=== PATIENT | female | born 1970 | race Caucasian/White ===

== ENCOUNTER 2020-05-27 11:23 | Inpatient (IN) | payer OTHER ==
[~2020-05-27] VITALS: Ht 175.3 cm; Wt 80.2 kg
[2020-05-27] MEDS ORDERED: IV NORMAL SALINE 1,000ML 1,000 ML IV SCH (12:00)
--- NOTE | 2020-05-27 12:00 | PHYS DOC ---
Past History Past Medical History: Anxiety Adult General Chief Complaint Chief Complaint: SHORTNESS OF BREATH HPI HPI Patient is a 50-year-old female presenting for COVID-19 symptoms. She was diagnosed 13 days ago at outpatient clinic. She has been symptomatic for francine roximately 15 days now. Patient's was infected first, then her [id number] was infected and symptomatic to the point of hospitalization for which she was discharged today. Nonetheless, patient today has been experiencing worsening dizziness, fatigue and generalized aches and pains for past 72 hours. She has had increased shortness of breath without any sputum production or reportable fever. She is otherwise healthy, has known medical diagnoses of anxiety, depression and psychogenic syncope, no prior cardiac or respiratory issues and is otherwise not on any other medications besides a daily SSRI. Review of Systems Review of Systems Fourteen body systems of review of systems have been reviewed. See HPI for pertinent positives and negative responses, other harry all other systems are negative, non-pertinent or non-contributory Physical Exam Physical Exam Constitutional: Pt is oriented to person, place, and time. Pt appears well-developed and well- nourished. HEENT: Head: Normocephalic and atraumatic. TMs clear, no hemotympanum Conjunctivae and EOM are normal. Pupils are equal, round, and reactive to light. Oropharynx is clear and moist. No hematomas or lacerations or abrasions to face or scalp OP clear, no blood, no malocclusion, dentition intact Nares clear, no nasal septal hematoma Midface stable Neck: C-spine midline nontender, no step-offs Cardiovascular: Normal rate, regular rhythm and normal heart sounds. Pulmonary/Chest: Effort normal and breath sounds normal. No respiratory distress. No wheezes. CTA bilaterally Abdominal: Soft. Bowel sounds are normal. Pt exhibits no distension. There is no tenderness. Musculoskeletal: No bony tenderness to extremities, no deformities, full ROM extremities Chest wall stable Pelvis stable and non-tender No vertebral TTP and spine without stepoffs Neurological: Pt is alert and oriented to person, place, and time. Moving all extremities willfully, able to wiggle all fingers and toes Alert and oriented x 3 Sensation grossly intact Skin: Skin is warm and dry. No abrasions, no lacerations Psychiatric: Behavior is appropriate for situation Current Patient Data Vital Signs Vital Signs Date Time Temp Pulse Resp B/P (MAP) Pulse Ox O2 Delivery O2 Flow Rate FiO2 05/27/20 18:05 Room Air 05/27/20 17:14 98.4 74 20 120/83 (95) 99 Lab Results Laboratory Tests Test 05/27/20 12:15 White Blood Count 7.9 x10^3/uL (4.0-11.0) Red Blood Count 4.84 x10^6/uL (3.50-5.40) Hemoglobin 15.1 g/dL (12.0-15.5) Hematocrit 45.1 % (36.0-47.0) Mean Corpuscular Volume 93 fL (79-100) Mean Corpuscular Hemoglobin 31 pg (25-35) Mean Corpuscular Hemoglobin Concent 34 g/dL (31-37) Red Cell Distribution Width 13.0 % (11.5-14.5) Platelet Count 307 x10^3/uL (140-400) Neutrophils (%) (Auto) 60 % (31-73) Lymphocytes (%) (Auto) 31 % (24-48) Monocytes (%) (Auto) 7 % (0-9) Eosinophils (%) (Auto) 1 % (0-3) Basophils (%) (Auto) 1 % (0-3) Neutrophils # (Auto) 4.7 x10^3uL (1.8-7.7) Lymphocytes # (Auto) 2.4 x10^3/uL (1.0-4.8) Monocytes # (Auto) 0.6 x10^3/uL (0.0-1.1) Eosinophils # (Auto) 0.1 x10^3/uL (0.0-0.7) Basophils # (Auto) 0.1 x10^3/uL (0.0-0.2) Sodium Level 141 mmol/L (136-145) Potassium Level 4.1 mmol/L (3.5-5.1) Chloride Level 104 mmol/L (98-107) Carbon Dioxide Level 22 mmol/L (21-32) Anion Gap 15 (6-14) Blood Urea Nitrogen 12 mg/dL (7-20) Creatinine 0.9 mg/dL (0.6-1.0) Estimated GFR (Cockcroft-Gault) 66.8 BUN/Creatinine Ratio 13 (6-20) Glucose Level 84 mg/dL (70-99) Calcium Level 9.5 mg/dL (8.5-10.1) Total Bilirubin 0.5 mg/dL (0.2-1.0) Aspartate Amino Transf (AST/SGOT) 30 U/L (15-37) Alanine Aminotransferase (ALT/SGPT) 52 U/L (14-59) Alkaline Phosphatase 101 U/L (46-116) Troponin I Quantitative < 0.017 ng/mL (0-0.055) Total Protein 7.7 g/dL (6.4-8.2) Albumin 4.0 g/dL (3.4-5.0) Albumin/Globulin Ratio 1.1 (1.0-1.7) EKG EKG EKG ordered and interpreted by myself at 1241 hrs. as sinus rhythm at 74 bpm, prolonged QTC at 470 otherwise unremarkable intervals, no axis deviation, no acute ischemic findings, no STEMI Radiology/Procedures Radiology/Procedures EXAM: Chest, single view. HISTORY: Covid 19. COMPARISON: None. FINDINGS: A frontal view of the chest is obtained. There is bilateral lower lobe atelectasis or interstitial infiltrate. There is no consolidated, pleural effusion or pneumothorax. The heart is normal in size. IMPRESSION: Bilateral lower lobe atelectasis or interstitial infiltrate. Electronically signed by: Lashanda Flores MD (05/27/2020 12:43 PM) [id number] Heart Score HEART Score for Chest Pain: HEART Score for Chest Pain Response (Comments) Value History Slighlty/Non-Suspicious 0 ECG Normal 0 Age >45 - < 65 1 Risk Factors 1 or 2 Risk Factors 1 Troponin < Normal Limit 0 Total 2 Risk Factors: Risk Factors: DM, Current or recent (<one month) smoker, HTN, HLP, family history of CAD, obesity. Risk Scores: Risk Factors: DM, Current or recent (<one month) smoker, HTN, HLP, family history of CAD, obesity. Course & Med Decision Making Course & Med Decision Making Pertinent Labs and Imaging studies reviewed. (See chart for details) Discussed no obvious emergent and/or surgical pathology but patient symptomatic from COVID-19 infection. Patient concerned about ability to safely ambulate and care for self at home. I discussed case with hospitalist who agreed for admission for observation. I updated patient on plan of care and she was amenable, all questions and concerns addressed prior to ER transport to [facility] for admission. Karan Disclaimer Dragon Disclaimer This electronic medical record was generated, in whole or in part, using a voice recognition dictation system. Departure Departure: Impression: Primary Impression: COVID-19 Additional Impression: Anxiety Disposition: ADMITTED INPT THIS HOSP Admitting Physician: Irvin Gunderson Condition: STABLE Referrals: PCP,NO (PCP) Problem Qualifiers DARRICK KAY DO May 27, 2020 12:00
--- NOTE | 2020-05-27 12:45 | RAD ---
EXAM: Chest, single view. HISTORY: Covid 19. COMPARISON: None. FINDINGS: A frontal view of the chest is obtained. There is bilateral lower lobe atelectasis or inter stitial infiltrate. There is no consolidated, pleural effusion or pneumothorax. The heart is normal i n size. IMPRESSION: Bilateral lower lobe atelectasis or interstitial infiltrate. Electronically signed by: Lashanda Flores MD (05/27/2020 12:43 PM) [id number]
[2020-05-27 12:50] LABS: BASO # 0.1 x10^3/uL (0.0-0.2); BASO % 1 % (0-3); EOS # 0.1 x10^3/uL (0.0-0.7); EOS % 1 % (0-3); HEMATOCRIT 45.1 % (36.0-47.0); HEMOGLOBIN 15.1 g/dL (12.0-15.5); LYMPH # 2.4 x10^3/uL (1.0-4.8); LYMPH % 31 % (24-48); MEAN CORPUSCULAR HEMOGLOBIN 31 pg (25-35); MEAN CORPUSCULAR HGB CONC 34 g/dL (31-37); MEAN CORPUSCULAR VOLUME 93 fL (79-100); MONO # 0.6 x10^3/uL (0.0-1.1); MONO % 7 % (0-9); NEUT # 4.7 x10^3uL (1.8-7.7); NEUT % 60 % (31-73); PLATELET COUNT 307 x10^3/uL (140-400); RED BLOOD COUNT 4.84 x10^6/uL (3.50-5.40); WHITE BLOOD COUNT 7.9 x10^3/uL (4.0-11.0)
--- NOTE | 2020-05-27 12:57 | EKG ---
[address] [address] Test Date: 2020-05-27 Test Time: 12:33:13 Pat Name: NIGEL DYKES Department: Room: Gender: F Manager Beauty: : 1970 Requested By: DARRICK KAY Order Number: [id number] Reading MD: Measurements Intervals [place] Rate: 74 P: 59 AL: 166 QRS: 65 QRSD: 80 T: 46 QT: 418 QTc: 470 Interpretive Statements SINUS RHYTHM NORMAL ECG RI6.02 No previous ECG available for comparison
[2020-05-27 12:58] LABS: CALCIUM 9.5 mg/dL (8.5-10.1); CREATININE 0.9 mg/dL (0.6-1.0); GFR 66.8; POTASSIUM 4.1 mmol/L (3.5-5.1)
[2020-05-27 13:03] LABS: ALBUMIN/GLOBULIN RATIO 1.1 (1.0-1.7); TOTAL BILIRUBIN 0.5 mg/dL (0.2-1.0); TOTAL PROTEIN 7.7 g/dL (6.4-8.2)
[2020-05-27 17:14] VITALS: BP 120/83
[2020-05-27] MEDS: IV NORMAL SALINE 1,000ML 1,000 ML IV ONE ×2 (17:15→20:14)
--- NOTE | 2020-05-27 17:45 | HP ---
ADMIT DATE: 05/27/2020 ATTENDING PHYSICIAN: Sergei Boggs MD CHIEF COMPLAINT: Weakness and shortness of breath. HISTORY OF PRESENT ILLNESS: The patient is a 50-year-old female admitted through the ED with worsening symptoms of dizziness, fatigue, generalized aches and pains in the last 72 hours. She was diagnosed with COVID-19 13 days ago, and [id number] at home had been ill. PAST MEDICAL HISTORY: Significant for anxiety, depression and some psychogenic syncope. No cardiac or respiratory issues. SOCIAL HISTORY: She is a nonsmoker, nondrinker. CURRENT MEDICINES: No other medications except daily SSRI. ALLERGIES: She has no known drug allergies. FAMILY HISTORY: Both mom and dad are still alive. SURGICAL HISTORY: Two C-sections and benign growth on the left foot. She is . She has 2 children, ages 13 and 15 respectively, in good health. REVIEW OF SYSTEMS: Significant for the COVID rios virus affecting her who has since recovered, [id number] was in the hospital for 6 days just discharged earlier today. Other review of systems, no loss of taste. No fevers or chills. Symptoms are rather vague. She has had a little bit of a panic issues. All other systems reviewed and turned to be negative. PHYSICAL EXAMINATION: GENERAL: When I saw her, this is a pleasant young female. INITIAL VITAL SIGNS: Showed a blood pressure 115/73 mmHg, pulse is 65 and regular, temperature 98.7 degrees Fahrenheit, oxygen saturation 100% on room air. HEENT: Head is without trauma. Pupils are reactive. Sclerae nonicteric. Oropharynx is clear. NECK: Supple, no bruits identified. LUNGS: Entirely clear to auscultation. CARDIOVASCULAR: Showed regular heart tones. No gallops. ABDOMEN: Soft, scaphoid, nontender, no organomegaly. Bowel sounds are hypoactive. EXTREMITIES: Showed no cyanosis or edema. NEUROLOGIC: Focally intact. SKIN: Warm and dry. PERTINENT LABORATORY STUDIES: Hemoglobin is 15.1 g/dL with white count of 7900. Electrolytes all within normal range. Cardiac enzymes negative for coronary ischemia. Chest x-ray in the ED showed some atelectasis in the lower lobe. There is no consolidation, infiltrate could not be ruled out. ASSESSMENT: 1. A 50-year-old female with COVID-19 coronavirus first diagnosed 2 weeks ago. 2. Vague symptoms of fatigue. 3. Strong anxiety component. 4. Questionable infiltrates on x-ray. She is not febrile and does not appear to have infections at this time. PLAN: 1. Observation status. 2. P.r.n. lorazepam. 3. Gentle IV hydration. 4. Diet as tolerated. SERGEI BOGGS MD DR: TEJA/jennifer JOB#: [id number] / [id number]
[2020-05-27] MEDS: LORazepam 1 MG TABLET PO PRN (20:14)
[2020-05-27 20:19] VITALS: BP 106/66
[2020-05-28] MEDS ORDERED: ONDA4TAB7 IVP (04:38)
[2020-05-28] MEDS ORDERED: ESCITALOPRAM OX20 MG PO (04:38)
[2020-05-28] MEDS ORDERED: ONDANSETRON PF 4 MG/2 ML VIAL. IVP PRN (05:00)
[2020-05-28] MEDS: LORazepam 1 MG TABLET PO PRN ×2 (06:17→19:39)
[2020-05-28 06:27] VITALS: BP 104/78
[2020-05-28] MEDS ORDERED: CITALOPRAM 20 MG TABLET. PO ONE (06:30)
[2020-05-28] MEDS: ACETAMINOPHEN 500 MG TABLET PO PRN (08:54)
[2020-05-28 11:02] VITALS: BP 105/67
[2020-05-28] MEDS ORDERED: KETOROLAC 30 MG/ML VIAL. IVP ONE (14:00)
[2020-05-28] MEDS: IV NORMAL SALINE 1,000ML 1,000 ML IV SCH (14:30)
[2020-05-28 15:02] VITALS: BP 118/93
--- NOTE | 2020-05-28 19:37 | PN ---
DATE: 05/28/2020 SUBJECTIVE: The patient was admitted yesterday through the Emergency Room. She has been positive for coronavirus for almost 2 weeks now. She has vague symptoms of fatigue and very strong anxiety component. She is hyperventilating. She has tingling and numbness in her hands. Chest x-ray, lab work and vital signs are all unremarkable. In fact, her oxygen saturation was 95% on room air. Her white cell count was 7900 with normal hemoglobin, hematocrit and platelet count. Her chemistry also was unremarkable. There is no evidence of any kidney impairment or liver enzyme abnormality. When I examined her this afternoon, she was sitting at the edge of the bed, in no apparent distress. She continued to complain of some nausea and vomiting and tingling and numbness and hyperventilation. PHYSICAL EXAMINATION: GENERAL: On examining her; however, she looked well and was clearly in no apparent distress. No pallor, jaundice, cyanosis or thyromegaly. No jugular venous distention. No limb edema. VITAL SIGNS: Her heart rate was 89, blood pressure was 105/67, temperature was 98.5, respiratory rate 20, and oxygen saturation was 95% on room air. HEAD, EYES, EARS, NOSE AND THROAT: Showed normocephalic, atraumatic. NECK: Supple. HEART: Showed normal first and second heart sounds. No gallop or murmur. CHEST: Clear to auscultation. No crepitation or rhonchi. ABDOMEN: Scaphoid, soft, nontender. NEUROLOGIC: She is grossly intact. LABORATORY DATA: As of yesterday showed a serum sodium 141, potassium 4.1, chloride 104, bicarbonate 22, anion gap of 15, BUN 12, creatinine 0.9, estimated GFR was 66.8 mL per minute. Her glucose was 84, calcium was 9.5. Total bilirubin, AST, ALT, alkaline phosphatase were normal. Total protein 7.7, albumin 4. Her white cell count was 7900, hemoglobin 15, hematocrit 45, MCV 93, and platelet count 307,000 with normal manual differential. ASSESSMENT: 1. This is a 50-year-old female patient who was COVID-19 positive, diagnosed about 2 weeks ago. 2. She continued to have vague symptoms including some headache, nausea and vomiting. She has very strong anxiety component. She is known to have anxiety and has hyperventilation, tingling and numbness of her hands. The chest x-ray and all her lab works were really unremarkable. PLAN: To continue with IV fluid, IV antiemetic. I will start her on Toradol for headache and also Zofran for nausea and vomiting. She was advised that she can eat as tolerated. GAB CARRINGTON MD DR: MARGARITA/jennifer JOB#: [id number] / [id number]
[2020-05-28] MEDS: KETOROLAC 15 MG/ML VIAL. IVP PRN (19:40)
[2020-05-28 20:09] LABS: BASO # 0.1 x10^3/uL (0.0-0.2); BASO % 1 % (0-3); EOS # 0.1 x10^3/uL (0.0-0.7); EOS % 1 % (0-3); HEMATOCRIT 38.7 % (36.0-47.0); HEMOGLOBIN 12.8 g/dL (12.0-15.5); LYMPH # 1.8 x10^3/uL (1.0-4.8); LYMPH % 30 % (24-48); MEAN CORPUSCULAR HEMOGLOBIN 31 pg (25-35); MEAN CORPUSCULAR HGB CONC 33 g/dL (31-37); MEAN CORPUSCULAR VOLUME 93 fL (79-100); MONO # 0.6 x10^3/uL (0.0-1.1); MONO % 10 % (0-9); NEUT # 3.5 x10^3uL (1.8-7.7); NEUT % 58 % (31-73); PLATELET COUNT 263 x10^3/uL (140-400); RED BLOOD COUNT 4.16 x10^6/uL (3.50-5.40)
[2020-05-28 20:20] LABS: CALCIUM 8.1 mg/dL (8.5-10.1); CREATININE 0.8 mg/dL (0.6-1.0); GFR 76.6; POTASSIUM 3.4 mmol/L (3.5-5.1)
[2020-05-28 20:40] VITALS: BP 120/75
[2020-05-29] MEDS: IV NORMAL SALINE 1,000ML 1,000 ML IV SCH ×2 (00:30→08:56)
[2020-05-29] MEDS: LORazepam 1 MG TABLET PO PRN (06:06)
[2020-05-29] MEDS: KETOROLAC 15 MG/ML VIAL. IVP PRN (06:06)
[2020-05-29 06:17] VITALS: BP 112/70
[2020-05-29 07:16] LABS: ALBUMIN/GLOBULIN RATIO 0.9 (1.0-1.7); CALCIUM 8.4 mg/dL (8.5-10.1); CREATININE 0.8 mg/dL (0.6-1.0); GFR 76.6; POTASSIUM 3.6 mmol/L (3.5-5.1); TOTAL BILIRUBIN 0.5 mg/dL (0.2-1.0); TOTAL PROTEIN 6.3 g/dL (6.4-8.2)
[2020-05-29 08:09] LABS: HEMATOCRIT 37.9 % (36.0-47.0); HEMOGLOBIN 12.4 g/dL (12.0-15.5); RED BLOOD COUNT 4.02 x10^6/uL (3.50-5.40); RED CELL DISTRIBUTION WIDTH 13.3 % (11.5-14.5); WHITE BLOOD COUNT 5.2 x10^3/uL (4.0-11.0)
[2020-05-29] MEDS: ACETAMINOPHEN 500 MG TABLET PO PRN (08:57)
[2020-05-29] MEDS ORDERED: CITALOPRAM 20 MG TABLET. PO SCH (09:00)
[2020-05-29 11:08] VITALS: BP 104/67
[2020-05-29] MEDS ORDERED: LORA-254 PO (15:02)
[2020-05-29] MEDS ORDERED: ONDA4TAB7 PO (15:02)
--- NOTE | 2020-05-29 18:12 | DS ---
DATE OF DISCHARGE: 05/29/2020 HOSPITAL COURSE: The patient is a 50-year-old female patient who was admitted through the Emergency Room with vague symptoms with a strong anxiety component. She is hyperventilating with some tingling and numbness of her hands. Chest x-ray, lab work and vital signs are all unremarkable. Her oxygen saturation was 95% on room air. Her lab work including her white cell count, hemoglobin, hematocrit and platelets are all normal. Her chemistry also is normal. She did very well today. She was slightly nauseous this morning, but however, she managed to tolerate her breakfast and lunch and when I saw her this afternoon, she was doing very well. Denied any complaint and expressed a desire to be discharged home. PHYSICAL EXAMINATION: GENERAL: When I saw her today, she looked well and was clearly in no apparent respiratory distress. No pallor, jaundice, cyanosis, or thyromegaly. No jugular venous distension. No limb edema. VITAL SIGNS: Her heart rate was 68, blood pressure was 104/67, temperature was 98.6, respiratory rate 20, and oxygen saturation was 96%. HEAD, EYES, EARS, NOSE AND THROAT: Showed normocephalic, atraumatic. NECK: Supple. HEART: Showed normal first and second heart sounds. No gallop or murmur. CHEST: Clear to auscultation. No crepitation or rhonchi. ABDOMEN: Distended, soft, nontender. NEUROLOGIC: She is grossly intact. LABORATORY DATA: This morning showed a white cell count 5200, hemoglobin 12, hematocrit 38, MCV 94, and platelet count of 248,000. Her chemistry showed a serum sodium 140, potassium 3.6, chloride 107, bicarbonate 23, anion gap of 10, BUN 11, creatinine 0.8, estimated GFR was 76 mL per minute. Her glucose was 85, calcium was 8.4. Total bilirubin, AST, ALT, alkaline phosphatase were normal. Total protein 6.3, albumin 3. DISCHARGE MEDICATIONS: The patient was discharged home to continue on Zofran 4 mg p.o. sublingually every 6 hours as needed for nausea and vomiting and Ativan 1 mg p.o. q.6 hourly as needed for anxiety. FINAL DISCHARGE DIAGNOSES: COVID-19 infection, headaches with some nausea and vomiting, resolved. GAB CARRINGTON MD DR: Marya JOB#: [id number] / [id number]
== END 2020-05-29 15:35 | disposition home or self-care (01) | DRG 178 ==
LOC: ER 11:23 → 1 SOUTH 13:00 → OBSVTOIN 18:13
PROVIDERS: ADMIT Hospitalist; ATTEND Hospitalist
DX: U07.1 COVID-19 (principal); J98.11 Atelectasis; F32.9 Major depressive disorder, single episode, unspecified; F41.9 Anxiety disorder, unspecified; R11.2 Nausea with vomiting, unspecified; R51.9 Headache, unspecified
CPT/HCPCS: 36415; 71045; 80048; 80053; 84484; 85025; 85027; 93005; 96374; G0378; G0379; J1885; J2060; J2405; 99285-25; J7030